=== PATIENT | male | born 1970 | race Hispanic/Latino ===

== ENCOUNTER 2017-10-09 20:57 | Emergency (ER) | payer OTHER ==
[~2017-10-09] VITALS: Ht 175.3 cm; Wt 108.9 kg
[~2017-10-09 20:57] MED LIST: HYDROCODON-ACE1 EA10 PO; NAPROSYN500 MG PO; NORCO 5-325 TA1 EACH PO; OXYCODONE-ACET1 EAC1 PO; ZOLPIDEM TARTRA10 MG PO
[2017-10-09] MEDS ORDERED: TRAMADOL HCL50 MG PO (21:57)
== END 2017-10-09 22:14 | disposition home or self-care (01) ==
LOC: ED 20:57
DX: S60.222A Contusion of left hand, initial encounter (principal); S80.12XA Contusion of left lower leg, initial encounter; M23.91 Unspecified internal derangement of right knee; Z85.72 Personal history of non-Hodgkin lymphomas; Z98.890 Other specified postprocedural states; Z79.899 Other long term (current) drug therapy; W11.XXXA Fall on and from ladder, initial encounter
CPT/HCPCS: 73110; 73560; 73590; 90471; 90715; 99283

== ENCOUNTER 2018-06-22 15:44 | Emergency (ER) | payer OTHER ==
[~2018-06-22] VITALS: Ht 175.3 cm; Wt 108.9 kg
--- OUTSIDE RECORDS SUMMARY | ~2018-06-22 | XMS | Clinical Summary ---
Demographics + + + | Address | [address] | | | [place] [address] | + + + | Home Phone | | + + + | Preferred Language | Unknown | + + + | Marital Status | | + + + | Jewish Affiliation | 1041 | + + + | Race | Unknown | + + + | Ethnic Group | Unknown | + + + Author + + + | Author | [facility] | | | and [place] | + + + | Organization | [facility] | | | and [place] | + + + | Address | Unknown | + + + | Phone | Unavailable | + + + Support + + + + + | Name | Relationship | Address | Phone | + + + + + | Rikki Bar | ECON | [address] | | | | | [place] | | | | | [address] | | + + + + + | Codi Rice | ECON | [address] | | | | | [place] | | | | | [address] | | + + + + + Care Team Providers + +------+ + | Care B2B Account Executive Name | Role | Phone | + +------+ + | Zoe Hodgson PA-C | PP | Unavailable | + +------+ + Allergies + + + + + + | Active Allergy | Reactions | Severity | Noted | Comments | | | | | Date | | + + + + + + | Adhesive & Tape | Sensitivity | | 12/06/19 | Silk tape | | | | | 15 | | + + + + + + Current Medications Not on file Active Problems Not on file Social History + +-------+ +--------+------+ | Tobacco Use | Types | Packs/Day | Years | Date | | | | | Used | | + +-------+ +--------+------+ | Never Assessed | | | | | + +-------+ +--------+------+ + + + | Sex Assigned at | Date Recorded | | | | + + + | Not on file | | + + + Plan of Treatment + + + + + | Health Maintenance | Due Date | Last Done | Comments | + + + + + | Vaccine: | | | | | Dtap/Tdap/Td (1 - | 0 | | | | Tdap) | | | | + + + + + | Vaccine: Influenza | | | | | (#1) | 8 | | | + + + + + Results Not on filefrom Last 3 Months Insurance + +--------+ +------+ +---------+ | Payer | Benefi | Subscriber | Type | Phone | Address | | | t Plan | ID | | | | | | / | | | | | | | Group | | | | | + +--------+ +------+ +---------+ | [employer] [facility] | PHP | [id number] | PPO | +1- | | | PLAN | [place] | | | [address] | | | | [place] | | | | | | | [place] | | | | | + +--------+ +------+ +---------+ | [facility] | PHP | [id number] | PPO | +- | | | PLAN | [place] | | | [address] | | | | [place] | | | | | | | [place] | | | | | + +--------+ +------+ +---------+ + +--------+ +--------+ + + | Guarantor Name | Accoun | Relation to | Date | Phone | Billing Address | | | t Type | Patient | of | | | | | | | | | | + +--------+ +--------+ + + | NILO RICE | Person | Self | [birth year] | Work: | | | | al/Francisco | | 1969 | [phone] | [place] [address] | | | [address] | | | [phone]: | | | | | | | | | | | | | | [phone] | | | | | | | [phone] | | + +--------+ +--------+ + +"
--- OUTSIDE RECORDS SUMMARY | ~2018-06-22 | XMS | Clinical Summary ---
Demographics + + + | Address | [address] | | | [place] [address] | + + + | Home Phone | | + + + | Preferred Language | Unknown | + + + | Marital Status | Single | + + + | Yazdanism Affiliation | Unknown | + + + | Race | Unknown | + + + | Ethnic Group | Other Race | + + + Author + + + | Author | [facility] | + + + | Organization | [facility] | + + + | Address | Unknown | + + + | Phone | Unavailable | + + + Care Team Providers + +------+ + | Care Obstetrics Gynecology Md Name | Role | Phone | + +------+ + PP | Unavailable | + +------+ + Source Comments LOGAN is fully live on both [facility] and [facility] InPatient.[facility] Allergies Not on File Current Medications Not on file Active Problems [...] | + + + + + | INFLUENZA VACCINE | | | | | (FLU SHOT) | 8 | | | + + + + + Results Not on filefrom Last 3 Months Insurance + +--------+ +------+ + + | Payer | Benefi | Subscriber | Type | Phone | Address | | | t Plan | ID | | | | | | / | | | | | | | Group | | | | | + +--------+ +------+ + + | [facility] | PHP | [phone] | PPO | +- | [address] | | | [place] | | | [address] | [place] [address] | | | [place] | | | | | | | [place] | | | | | + +--------+ +------+ + + | [facility] | PHP | [phone] | PPO | +- | [address] | | | [place] | | | [address] | [place] [address] | | | [place] | | | | | | | [place] | | | | | + +--------+ +------+ + + + +--------+ +--------+ + + | Guarantor Name | Accoun | Relation to | Date | Phone | Billing Address | | | t Type | Patient | of | | | | | | | | | | + +--------+ +--------+ + + | NILO ART | Person | Self | [birth year] | Home: | [address] | | al/Fam | | 1970 | [phone] | [place] [address] | | | [address] | | | [phone] | | + +--------+ +--------+ + +"
--- OUTSIDE RECORDS SUMMARY | ~2018-06-22 | XMS | Clinical Summary ---
Demographics + + + | Address | [address] | | | [place] [address] | + + + | Home Phone | | + + + | Preferred Language | Unknown | + + + | Marital Status | | + + + | Voodoo Affiliation | 1041 | + + + | Race | Unknown | + + + | Ethnic Group | Unknown | + + + Author + + + | Author | [facility] | | | and [place] | + + + | Organization | [facility] | | | and [place] [...] [place] | | | | | [address] | | + + + + + | Codi Rice | ECON | [address] | | | | [place] | | | | | [address] | | + + + + + Care Team Providers + +------+ + | Care Place Change Roof Bolter Name | Role | Phone | + [...] | | + +--------+ +------+ +---------+ | [facility] | PHP | [id number] | PPO | +1- | | | PLAN | [place] | | | [address] | | | | [place] | | | | | | | [place] | | | | | + +--------+ +------+ +---------+ | [facility] | PHP | [id number] | PPO | +- | | | [...] | | al/Francisco | | 1969 | [phone] | [place] [address] | | | [place] | | | [address] Home: | | | | | | | | | | | | | | [phone] | | | | | | | [phone] | | + +--------+ +--------+ + +"
--- OUTSIDE RECORDS SUMMARY | ~2018-06-22 | XMS | Clinical Summary ---
Demographics + + + | Address | [address] | | | [place] [address] | + + + | Home Phone | | + + + | Preferred Language | Unknown | + + + | Marital Status | Single | + + + | Methodist Affiliation | Unknown | + + + | Race | Unknown | + + + | Ethnic Group | Other Race | + + + Author + + + | Author | [facility] | + + + | Organization | [facility] | + + + | Address | Unknown | + + + | Phone | Unavailable | + + + Care Team Providers + +------+ + | Care Clod Puller Name | Role | Phone | + +------+ + PP | Unavailable | + +------+ + Source Comments LOGAN is fully live on both [facility] and [facility] InPatient.[facility] Allergies Not on File Current Medications Not [...] | [address] | | | [address] | [place] [address] | | | [place] | | | | | | | [place] | | | | | + +--------+ +------+ + + | [facility] | PHP | [phone] | PPO | +- | [address] | | | [place] | | | [address] | [place] [address] | | | [place] | | | [...] | 1970 | [phone] | [place] [address] | | | am[address] | | | [address] | | + +--------+ +--------+ + +"
[~2018-06-22 15:44] MED LIST changes: +TRAMADOL HCL50 MG PO
== END 2018-06-22 16:12 | disposition home or self-care (01) ==
LOC: ED 15:44
DX: S51.011A Laceration without foreign body of right elbow, initial encounter (principal); W22.8XXA Striking against or struck by other objects, initial encounter

== ENCOUNTER 2018-12-23 15:28 | Emergency (ER) | payer OTHER ==
[~2018-12-23] VITALS: Ht 175.3 cm; Wt 108.9 kg
--- OUTSIDE RECORDS SUMMARY | 2018-12-23 15:32 | XMS ---
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 EManny VISIT COUNT (12 MO.) 2 [facility] Pat[facility] TOTAL 2 NOTE: Visits indicate total known visits. ED/UCC VISIT TRACKING (12 MO.) 12/23/2018 15:28 [facility] [place] TYPE: Emergency COMPLAINT: - WC- FALL 06/22/2018 15:45 [facility] [place] TYPE: Emergency COMPLAINT: - WOUND CHECK/R ELBOW/MSE TO CLINIC DIAGNOSES: - Laceration without foreign body of right elbow, initial encounter - Striking against or struck by other objects, initial encounter INPATIENT VISIT TRACKING (12 MO.) No inpatient visits to display in this time frame [email or web address]
[2018-12-23] MEDS ORDERED: CYCLOBENZAPRINE5 MG PO (17:07)
[2018-12-23] MEDS ORDERED: IBUPROFEN600 MG PO (17:07)
== END 2018-12-23 17:15 | disposition home or self-care (01) ==
LOC: ED 15:28
DX: S39.012A Strain of muscle, fascia and tendon of lower back, initial encounter (principal); S16.1XXA Strain of muscle, fascia and tendon at neck level, initial encounter; Z85.72 Personal history of non-Hodgkin lymphomas; Z79.899 Other long term (current) drug therapy; W10.9XXA Fall (on) (from) unspecified stairs and steps, initial encounter
CPT/HCPCS: 72040; 72100; 99283-25

== ENCOUNTER 2021-05-23 12:10 | Emergency (ER) | payer OTHER ==
[~2021-05-23] VITALS: Ht 175.3 cm; Wt 106.6 kg
[~2021-05-23 12:10] MED LIST changes: +CYCLOBENZAPRINE5 MG PO; +IBUPROFEN600 MG PO; +OMEPRAZOLE20 MG PO; +ZYRTEC10 MG PO
--- OUTSIDE RECORDS SUMMARY | 2021-05-23 12:18 | XMS ---
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 - 2 Visits in 30 Days CARE PROVIDERS MEDICINE, [facility] PHONE: [phone] CARLOS BOB Physician 12/24/2018-Current PHONE: [phone] Trinidad has no Care Guidelines for this patient. Freddy VISIT COUNT (12 MO.) 2 [facility] TOTAL 2 NOTE: Visits indicate total known visits. ED/UCC VISIT TRACKING (12 MO.) 05/23/2021 12:11 [facility] [place] TYPE: Emergency COMPLAINT: - DEHYDRATION,SOB,GALLBLADDER PAIN 04/28/2021 10:30 [facility] [place] TYPE: Emergency COMPLAINT: - FINGER LACERATION- [facility] INPATIENT VISIT TRACKING (12 MO.) No inpatient visits to display in this time frame [email or web address]
[2021-05-23] MEDS ORDERED: HYDROXYZINE HCL25 MG PO (12:36)
[2021-05-23] MEDS ORDERED: LIDOCAINE HCL100 ML MT (12:37)
[2021-05-23] MEDS ORDERED: SUCRALFATE1 GM PO (12:37)
--- NOTE | 2021-05-23 14:48 | EKG ---
[facility] [address] [facility] [place], [place] [address] Signed Sinus bradycardia Otherwise normal ECG No previous ECGs available Confirmed by MUMTAZ HAMILTON MD ([id number]) on 05/23/2021 2:48:21 PM Electronically Signed By: MUMTAZ HAMILTON MD 05/23/21 1448 PATIENT NAME: BETTE RICE Electrocardiogram DATE OF : 72 PHYSICIAN: MUMTAZ HAMILTON MD REPORT #: [id number] REPORT IS CONFIDENTIAL AND NOT TO BE RELEASED WITHOUT AUTHORIZATION
== END 2021-05-23 17:39 | disposition home or self-care (01) ==
LOC: ED 12:10
DX: K29.70 Gastritis, unspecified, without bleeding (principal); Z79.899 Other long term (current) drug therapy
CPT/HCPCS: 76705; 80053; 81001; 83690; 84484; 85025; 93005; 93010; 96361; 96374; 99285-25; J2405; J7030

== ENCOUNTER 2025-03-13 07:20 | Day surgery (SDC) | payer OTHER ==
[~2025-03-13] VITALS: Ht 175.3 cm; Wt 98.6 kg
[~2025-03-13 07:20] MED LIST changes: +HYDROXYZINE HCL25 MG PO; +IBLOOD GLUCOSE TEST STRIP 1 EA TEST VI PRN; +LACTATED RINGER'S 1,000 ML IV SCH; +LIDOCAINE HCL 1% 5 ML SDV INJ ONE; +LIDOCAINE HCL100 ML MT; +MIDAZOLAM HCL 5 MG/5 ML VIAL IV PRN; +SUCRALFATE1 GM PO; +fentaNYL citrate 100 MCG/2 ML VIAL IV PRN
[2025-03-13 07:48] VITALS: BP 109/65
--- NOTE | 2025-03-13 07:51 | NUR ---
S O AT BEDSIDE, YANIQUE
--- NOTE | 2025-03-13 08:08 | NUR ---
VISITED DURING SPIRITUAL CARE ROUNDS. PT SUPPORTED BY SPOUSE IN ROOM. BOTH IN OVERALL GOOD SPIRITS; NO IMMEDIATE NEEDS. CONCRETE BOOM PUMP OPERATOR PROVIDED SUPPORTIVE PRESENCE, HOSPITALITY, PRAYER, FACILITATED INTERACTION WITH THERAPY ANIMAL. PT AND SPOUSE EXPRESSED GRATITUDE.
[2025-03-13] MEDS ORDERED: MIDAZOLAM HCL 5 MG/5 ML VIAL ONE (08:22)
[2025-03-13] MEDS ORDERED: fentaNYL citrate 100 MCG/2 ML VIAL ONE (08:22)
--- NOTE | 2025-03-13 09:37 | NUR ---
03/13/25 0937 Melissa Allen 0903 PT ARRIVED IN PACU SLEEPY. ABD SOFT. 0915 AT BEDSIDE. ALL QUESTIONS ANSWERED. 0930 SITTING UP IN BED SIPPING ON WATER. 0937 DC INSTRUCTIONS GIVEN.
[2025-03-13 09:46] VITALS: BP 104/77
--- NOTE | 2025-03-16 07:57 | OR ---
[facility] [address] [place], [place] [address] Signed DATE OF OPERATION: 03/13/2025 SURGEON: Erica Archer MD PREOPERATIVE DIAGNOSES: 1. Colon screening. 2. History of non-Hodgkin's lymphoma (total remission). POSTOPERATIVE DIAGNOSIS: Sigmoid diverticulosis. PROCEDURE: Total colonoscopy to cecum. ANESTHESIA: Intravenous sedation, fentanyl 100 mcg and Versed 5 mg. INDICATION: This 55-year-old man is a patient of ELISSA Cheng. He is known to me from the past. The patient has had non-Hodgkin's lymphoma treated primarily with radiation therapy and is in complete remission from this. He is admitted for screening colonoscopy having never undergone colonoscopy in the past. He has no symptoms of bleeding, diarrhea, or constipation and no family history of colon cancer. He understands the risk of screening colonoscopy including but not limited to bleeding, infection, and perforation and wished to proceed. FINDINGS: The prep was excellent. Complete colonoscopy was undertaken of the cecum. There was no evidence of polyp, though he had numerous diverticula of the sigmoid colon. DESCRIPTION OF PROCEDURE: The patient was brought to the endoscopy suite and placed in the lateral decubitus position, given intravenous sedation to the point of slurred speech and nystagmus. Digital rectal examination was normal. An Olympus video colonoscope was passed in the rectum and manipulated throughout the colon ultimately intubating the cecum itself. The ileocecal valve and appendiceal orifice were normal. The scope was then withdrawn and examination showed no sign of abnormality other than diverticula of the sigmoid colon. Retroflexed view was normal as well. The scope was removed and the patient was taken to recovery room in good condition. Electronically Signed By: ERICA ARCHER MD 03/16/25 0757 PATIENT NAME: BETTE RICE JR OPERATIVE REPORT DATE OF : 72 REPORT #: [id number] PHYSICIAN: ERICA ARCHER MD PCP: MARIPOSA HUMPHREY PA-C REPORT IS CONFIDENTIAL AND NOT TO BE RELEASED WITHOUT AUTHORIZATION [facility] [address] [place], [place] [address] Signed CONCLUDING DIAGNOSIS: Normal colon to cecum. PLAN: Recommend repeat colonoscopy in 10 years based on current guidelines, sooner if symptoms should develop. Recommend high-fiber diet too. He will return to the ongoing care of ELISSA Cheng. Erica Archer MD JM/MODL /[id number] cc: Mariposa Humphrey PA-C Copies: MARIPOSA HUMPHREY PA-C ~ Electronically Signed By: ERICA ARCHER MD 03/16/25 0757 PATIENT NAME: BETTE RICE JR OPERATIVE REPORT DATE OF : 72 REPORT #: [id number] PHYSICIAN: ERICA ARCHER MD PCP: MARIPOSA HUMPHREY PA-C REPORT IS CONFIDENTIAL AND NOT TO BE RELEASED WITHOUT AUTHORIZATION
== END 2025-03-13 09:50 | disposition home or self-care (01) ==
LOC: OPS 07:20 → DS 07:20 → OPS 08:30
PROVIDERS: ATTEND Surgery
PROC: 0DJD8ZZ Inspection of Lower Intestinal Tract, Via Natural or Artificial Opening Endoscopic (ICD-10-PCS; principal; 2025-03-13 08:30)
DX: Z12.11 Encounter for screening for malignant neoplasm of colon (principal); K57.30 Diverticulosis of large intestine without perforation or abscess without bleeding; Z85.72 Personal history of non-Hodgkin lymphomas; Z98.890 Other specified postprocedural states; Z90.49 Acquired absence of other specified parts of digestive tract; Z79.899 Other long term (current) drug therapy
CPT/HCPCS: 99153; G0500; J2250; J3010; J7121